=== PATIENT | female | born 1970 | race African-American/Black ===

== ENCOUNTER → 2016-09-01 | Day surgery (SDC) | payer BC ==
--- NOTE | 2016-09-05 16:16 | PATH ---
Surgical Pathology Report Patient Name: CHRIS HENRY [facility]. Rec. #: [id number] /Age/Gender: 1970 (Age: 45) / F Account: [id number] Location: [facility] BRE[facility] Taken: 09/01/2016 Received: 09/01/2016 Reported: 09/05/2016 Physicians: Keaton Higgins MD Specimen(s) Received BREAST CORE BIOPSY RIGHT 10:00 [id number] Clinical History Ultrasound findings: Probably benign Final Diagnosis BREAST, RIGHT, 10:00, 8 CM FN, CORE BIOPSY: BENIGN BREAST TISSUE SHOWING FIBROADENOMA. Electronically Signed Megan Flores M.D. Gross Description Received in formalin labeled "right breast biopsy 10:00, 8 cmfn," is a 1.4 x 1.1 x 0.2 cm aggregate of multiple mcclain-yellow, irregular to cylindrical portions of fibroadipose tissue. The formalin is filtered and the specimen is entirely submitted in one cassette. Time to formalin fixation: 2 minutes Total formalin fixation time: Approximately 8 hours 09/01/2016
== END | disposition home or self-care (01) ==
LOC: FRADUS-SUR 08-30 09:55
PROVIDERS: ATTEND Internal Medicine
PROC: 0HBT3ZX Excision of Right Breast, Percutaneous Approach, Diagnostic (ICD-10-PCS; principal; 2016-09-01)
DX: N63 Unspecified lump in breast (principal); D24.1 Benign neoplasm of right breast
CPT/HCPCS: 19083; 87899; 88305-TC; A4648; G0206-TC

== ENCOUNTER 2021-07-20 03:24 | Observation (INO) | payer OTHER ==
[2021-07-20] MEDS ORDERED: MAG HYDROX/AL HYDROX/SIMETH -MYLANTA- ORAL SUSPENSION PO ONE (03:47)
[2021-07-20] MEDS ORDERED: FAMOTIDINE 20 MG/50 ML IVPB 20 MG/50 ML MG IVPB ONE (03:47)
[2021-07-20] MEDS ORDERED: SODIUM CHLORIDE 0.9% 1000 ML INFUS.BAG IV ONE (03:47)
[2021-07-20] MEDS ORDERED: ACETAMINOPHEN 1000 MG/100 ML BAG IVPB ONE ×2 (03:47→08:15)
[2021-07-20] MEDS ORDERED: morphine CARPU-JECT 4 MG/1 ML DISP.SYRIN IVPUSH ONE (03:48)
[2021-07-20] MEDS ORDERED: morphine SULFATE 4 MG/ML VIAL ONE (04:16)
[2021-07-20] MEDS ORDERED: MAG HYDROX/AL HYDROX/SIMETH 30 ML UNIT-DOSE CUP ONE (04:31)
[2021-07-20 04:46] LABS: BASO % 0.9 % (0-2.0); EOS % 4.9 % (0-4.5); HEMATOCRIT 37.9 % (32.4-45.2); HEMOGLOBIN 12.9 GM/dL (10.7-15.3); LYMPH % 32.5 % (8-40); MCH 30.7 pg (25.7-33.7); MEAN CELL VOLUME 90.3 fl (80-96); MONO % 9.8 % (3.8-10.2); NEUT % 51.9 % (42.8-82.8); PLATELET COUNT 194 10^3/uL (134-434); RDW 13.9 % (11.6-15.6); WHITE BLOOD COUNT 3.6 K/mm3 (4.0-10.0)
[2021-07-20 05:03] LABS: PH,URINE >= 9.0 (5.0-8.0); URINE APPEARANCE CLOUDY; URINE BILIRUBIN NEGATIVE (NEGATIVE); URINE COLOR YELLOW; URINE GLUCOSE (UA) NEGATIVE (NEGATIVE); URINE KETONE NEGATIVE (NEGATIVE); URINE LEUK ESTERASE NEGATIVE (NEGATIVE); URINE NITRITE NEGATIVE (NEGATIVE); URINE PROTEIN NEGATIVE (NEGATIVE); URINE UROBILINOGEN 0.2 mg/dL (0.2-1.0)
[2021-07-20 05:05] LABS: CALCIUM 8.5 mg/dL (8.5-10.1)
[2021-07-20 05:06] LABS: ALBUMIN 3.5 g/dl (3.4-5.0); BLOOD UREA NITROGEN 16.4 mg/dL (7-18)
[2021-07-20 05:09] LABS: CREATININE 0.9 mg/dL (0.55-1.3)
[2021-07-20 05:11] LABS: BILIRUBIN,TOTAL 0.4 mg/dL (0.2-1)
[2021-07-20] MEDS ORDERED: ACETAMINOPHEN INJECTION 100 ML IVPB ONE (08:16)
[2021-07-20] MEDS ORDERED: SODIUM CHLORIDE 1,000 ML IV SCH (12:00)
[2021-07-20] MEDS ORDERED: POLYETHYLENE GLYCOL (HEALTHYLAX) 3350 17 GM PACKET PO SCH (12:25)
[2021-07-20] MEDS ORDERED: SIMETHICONE 40 MG/0.6 ML BOTTLE PO PRN (14:11)
[2021-07-20 18:51] VITALS: BP 113/69; PULSE 66; TEMP 98.9
[2021-07-20 19:43] VITALS: BMI 22.5
[2021-07-20] MEDS ORDERED: POLYETHYLENE GLYCOL 3350 119 GM BTL PO SCH (22:00)
[2021-07-21] MEDS ORDERED: ENOXAPARIN NA (PORCINE) 40 MG/0.4 ML DISP.SYRIN SQ SCH (10:00)
== END 2021-07-20 19:58 | disposition home or self-care (01) ==
LOC: JER 03:24 → JERBED 07:44 → J5S 10:50
PROVIDERS: ADMIT Internal Medicine; ATTEND Internal Medicine
PROC: 3E033GC Introduction of Other Therapeutic Substance into Peripheral Vein, Percutaneous Approach (ICD-10-PCS; principal; 2021-07-20)
PROC: 3E033NZ Introduction of Analgesics, Hypnotics, Sedatives into Peripheral Vein, Percutaneous Approach (ICD-10-PCS; 2021-07-20)
PROC: 3E0337Z Introduction of Electrolytic and Water Balance Substance into Peripheral Vein, Percutaneous Approach (ICD-10-PCS; 2021-07-20)
DX: K58.9 Irritable bowel syndrome, unspecified (principal); R63.0 Anorexia; R14.0 Abdominal distension (gaseous); K59.00 Constipation, unspecified; R94.5 Abnormal results of liver function studies; Z91.013 Allergy to seafood; Z91.018 Allergy to other foods; Z29.8 Encounter for other specified prophylactic measures; R74.01 Elevation of levels of liver transaminase levels; D25.9 Leiomyoma of uterus, unspecified
CPT/HCPCS: 36415; 71045-TC-FY; 74177-TC; 80053; 81003; 83690; 84484; 84703; 85025; 87086; 93005; 93010; 96365; 96375; 99285-25; C9803-CS; G0378; U0003; U0005

== ENCOUNTER 2023-06-20 02:55 | Emergency (ER) | payer OTHER ==
[2023-06-20 03:00] VITALS: BMI 21.6
[2023-06-20] MEDS ORDERED: MAG HYDROX/AL HYDROX/SIMETH 30 ML UNIT-DOSE CUP ONE (04:14)
[2023-06-20] MEDS ORDERED: FAMOTIDINE 20 MG/50 ML IVPB 20 MG/50 ML MG IVPB ONE (04:14)
[2023-06-20] MEDS ORDERED: ACETAMINOPHEN INJECTION 100 ML IVPB ONE (04:14)
[2023-06-20] MEDS: SODIUM CHLORIDE 0.9% 500 ML INFUS.BAG IV ONE (04:21)
[2023-06-20] MEDS: MAG HYDROX/AL HYDROX/SIMETH 30 ML UNIT-DOSE CUP PO ONE (04:21)
[2023-06-20] MEDS: ACETAMINOPHEN 1000 MG/100 ML BAG IVPB ONE (04:21)
[2023-06-20] MEDS: FAMOTIDINE 20 MG/50 ML IVPB 20 MG/50 ML MG IVPB ONE (04:21)
[2023-06-20 04:54] LABS: BASO % 0.9 % (0-2.0); EOS % 6.1 % (0-4.5); HEMATOCRIT 37.5 % (32.4-45.2); HEMOGLOBIN 12.4 GM/dL (10.7-15.3); LYMPH % 33.2 % (8-40); MCH 30.4 pg (25.7-33.7); MCHC 33.1 g/dl (32.0-36.0); MEAN CELL VOLUME 91.9 fl (80-96); MEAN PLT VOLUME 9.4 fl (7.5-11.1); MONO % 12.1 % (3.8-10.2); NEUT % 47.7 % (42.8-82.8); PLATELET COUNT 206 10^3/uL (134-434); RBC 4.08 M/mm3 (3.60-5.2); RDW 14.4 % (11.6-15.6); WHITE BLOOD COUNT 5.9 K/mm3 (4.0-10.0)
[2023-06-20 04:58] LABS: EPI CELLS 20 /uL (0-25.1); HYALINE CASTS 0 /uL (0-3.1); PH,URINE 6.5 (5.0-8.0); URINE APPEARANCE CLEAR; URINE BACTERIA 299 /uL (0-1359); URINE BILIRUBIN NEGATIVE (NEGATIVE); URINE COLOR YELLOW; URINE GLUCOSE (UA) NEGATIVE (NEGATIVE); URINE KETONE NEGATIVE (NEGATIVE); URINE LEUK ESTERASE TRACE (NEGATIVE); URINE NITRITE NEGATIVE (NEGATIVE); URINE PROTEIN NEGATIVE (NEGATIVE); URINE RBC 16 /uL (0-23.9); URINE UROBILINOGEN 0.2 mg/dL (0.2-1.0); URINE WBC 18 /uL (0-25.8)
[2023-06-20 05:08] LABS: POTASSIUM 4.2 mmol/L (3.5-5.1)
[2023-06-20 05:11] LABS: CALCIUM 9.1 mg/dL (8.5-10.1)
[2023-06-20 05:12] LABS: ALBUMIN 3.4 g/dl (3.4-5.0); BLOOD UREA NITROGEN 25.5 mg/dL (7-18)
[2023-06-20 05:14] LABS: CREATININE 0.7 mg/dL (0.55-1.3)
[2023-06-20 05:15] LABS: BILIRUBIN,TOTAL 0.3 mg/dL (0.2-1); TOT PROT 6.7 g/dl (6.4-8.2)
[2023-06-20 07:07] LABS: HCG,QUALITATIVE URINE Negative
[2023-06-20 09:17] VITALS: BP 102/54; PULSE 56; RESP 17; TEMP 97.5
[2023-06-20] MEDS ORDERED: MAGNESIUM CITRATE 300 ML BOTTLE ONE (11:30)
[2023-06-20] MEDS: MAGNESIUM CITRATE 300 ML BOTTLE PO ONE (11:32)
== END 2023-06-20 11:33 | disposition home or self-care (01) ==
LOC: JER 02:55
PROC: 3E033GC Introduction of Other Therapeutic Substance into Peripheral Vein, Percutaneous Approach (ICD-10-PCS; principal; 2023-06-20)
PROC: 3E033NZ Introduction of Analgesics, Hypnotics, Sedatives into Peripheral Vein, Percutaneous Approach (ICD-10-PCS; 2023-06-20)
DX: R10.12 Left upper quadrant pain (principal); N39.0 Urinary tract infection, site not specified; K59.00 Constipation, unspecified
CPT/HCPCS: 36415; 71045-TC-FY; 74176-TC; 76705-TC; 80053; 81003; 83690; 84484; 84703; 85025; 87086; 93005; 93010; 99285-25; J0131